=== PATIENT | female | born 1980 | race Caucasian/White ===

== ENCOUNTER → 2020-08-06 | Outpatient (CLI) | payer OTHER ==
--- NOTE | 2020-08-06 12:38 | XR ---
EXAMINATION TYPE: XR Hip Bilateral and AP pelvis DATE OF EXAM: 08/06/2020 COMPARISON: CT abdomen and pelvis January 18, 2014 HISTORY: Bilateral hip pain. TECHNIQUE: A single AP view of the pelvis is obtained. Two views of the bilateral hips are obtained. FINDINGS: There is no acute fracture/dislocation evident in the pelvis. The sacroiliac joints appea r symmetric and unremarkable. Pubic symphysis is intact. The overlying soft tissue appears unremarkab le. Two views of bilateral hips show no acute fracture or dislocation. Subchondral cysts in the superior acetabulum left hip on CT less well seen on plain films. No significant asymmetric joint space loss o r spurring bilaterally. Overlying soft tissue is unremarkable bilaterally. Impression: As above.
== END | disposition home or self-care (01) ==
LOC: RADXRMAIN 10:30
PROVIDERS: ATTEND Nurse Practitioner Adult Health
DX: M25.551 Pain in right hip (principal); M25.552 Pain in left hip
CPT/HCPCS: 73521

== ENCOUNTER → 2021-03-27 | Outpatient (CLI) | payer OTHER ==
--- NOTE | 2021-03-27 11:23 | CT ---
EXAMINATION TYPE: CT abdomen pelvis wo con DATE OF EXAM: 03/27/2021 COMPARISON: 01/18/2014 HISTORY: 40-year-old female R1 0.31, RLQ pain CT DLP: 1208 mGycm. Automated exposure control for dose reduction was used. TECHNIQUE: Contiguous axial scanning of the abdomen and pelvis without IV contrast. Coronal and sagit genoveva reconstructions performed. FINDINGS: Heart normal size without pericardial effusion. Lung bases clear without pleural effusion. Liver borderline in size at 17.6 cm. Noncontrast appearance of the liver, adrenal glands, kidneys, an d pancreas show no gross abnormality. Cholecystectomy clips. Spleen mildly enlarged at 14.9 cm. No dilated small bowel, free fluid, or free air. Prominent 9 mm left common iliac chain lymph node. Probably reactive. Scattered nonenlarged mesenteri c lymph nodes. Normal appendix. Mild stool burden. No pericolonic inflammatory change. Bladder is urine distended. Nonspecific prominent but nonenlarged bilateral inguinal lymph nodes kranthi uring up to 1.1 cm. Uterus surgically absent. Redemonstrated complex cystic lesion of the left ovary measuring 4.9 x 4.1 cm. This is not as well se en on 01/18/2014 and was thought to have been excised at that time. In retrospect, it was still prese nt and measured 4.3 cm. Bones: Osteitis pubis. Mild change of both hips. Moderate degenerative disc disease L5-S1. Disc bulge L4-L5. IMPRESSION: 1. Normal appendix. 2. Recommend [employer] follow-up for the 4.9 x 4.1 cm complex cystic mass of the left ovary. This was n ot as well seen on 01/18/2014 and was thought to have been excised at that time. In retrospect, it wa s still present and measured 4.3 cm. 3. Mild splenic megaly of 14.9 cm.
== END | disposition home or self-care (01) ==
LOC: RADCTMAIN 10:47
PROVIDERS: ATTEND Family Medicine
DX: R16.1 Splenomegaly, not elsewhere classified (principal); N83.292 Other ovarian cyst, left side
CPT/HCPCS: 74176